=== PATIENT | female | born 1990 | race Caucasian/White ===

== ENCOUNTER 2020-01-17 20:56 | Emergency (ER) | payer OTHER ==
[~2020-01-17] VITALS: Ht 154.9 cm; Wt 63.5 kg
--- NOTE | 2020-01-17 21:00 | NUR ---
Dr. Moran at bedside for MSE.
[2020-01-17] MEDS ORDERED: MORPHINE SULFATE 4 MG/1 ML DISP.SYRIN ONE (21:08)
[2020-01-17] MEDS ORDERED: ONDANSETRON 4 MG/2 ML VIAL ONE (21:08)
[2020-01-17] MEDS ORDERED: MORPHINE SULFATE 4 MG/1 ML DISP.SYRIN IM ONE (21:15)
[2020-01-17] MEDS ORDERED: IV NORMAL SALINE 1000 ML BAG IV ONE (21:15)
[2020-01-17] MEDS ORDERED: ONDANSETRON 4 MG/2 ML VIAL IM ONE (21:15)
[2020-01-17 21:18] LABS: BASOPHILS % (AUTO) 0.3 % (0.0-2.0); EOSINOPHILS % (AUTO) 0.3 % (0.0-7.0); HEMATOCRIT 35.6 % (31.2-41.9); HEMOGLOBIN 11.6 g/dL (10.9-14.3); LYMPHOCYTES # (AUTO) 1.5 K/uL (20.0-40.0); LYMPHOCYTES % (AUTO) 11.8 % (20.5-51.5); MEAN CORPUSCULAR HEMOGLOBIN 22.9 uug (24.7-32.8); MEAN CORPUSCULAR HGB CONC 33 g/dL (32.3-35.6); MEAN CORPUSCULAR VOLUME 70.1 fL (75.5-95.3); MONOCYTES # (AUTO) 0.6 K/uL (2.0-10.0); MONOCYTES % (AUTO) 5.1 % (0.0-11.0); NEUTROPHILS # (AUTO) 10.4 K/uL (1.8-8.9); NEUTROPHILS % (AUTO) 82.5 % (38.5-71.5); PLATELET COUNT (AUTO) 344 K/uL (179-408); RED BLOOD CELL COUNT(AUTO) 5.08 MIL/uL (3.63-4.92); WHITE BLOOD COUNT (AUTO) 12.6 K/uL (3.8-11.8)
[2020-01-17 21:31] LABS: BILIRUBIN,DIRECT 0.1 mg/dL (0.0-0.2); BILIRUBIN,TOTAL 0.3 mg/dL (0.2-1.0); TOTAL PROTEIN, SERUM 8.2 g/dL (6.4-8.2)
[2020-01-17 21:38] LABS: POTASSIUM 3.4 mmol/L (3.5-5.1)
--- NOTE | 2020-01-17 22:01 | NUR ---
Ultrasound at bedside.
[2020-01-17] MEDS ORDERED: IV NORMAL SALINE 250 ML IV ONE (22:08)
[2020-01-17] MEDS ORDERED: SWABABLE VALVE TRANSFER SET EA MC ONE (22:08)
[2020-01-17] MEDS ORDERED: IOHEXOL 300MG/ML 100 ML INFUS..BTL ONE (22:08)
[2020-01-17] MEDS ORDERED: KETOROLAC TROMETHAMINE 30 MG INJ ONE (22:11)
[2020-01-17] MEDS ORDERED: MORPHINE SULFATE 2 MG/1 ML DISP.SYRIN ONE (22:11)
[2020-01-17] MEDS ORDERED: MORPHINE SULFATE 2 MG/1 ML DISP.SYRIN IV ONE (22:15)
[2020-01-17] MEDS ORDERED: KETOROLAC TROMETHAMINE 30 MG INJ IVP ONE (22:15)
[2020-01-17 22:29] LABS: *BILIRUBIN,URIN NEGATIVE (NEGATIVE); *COLOR,URINE YELLOW (YELLOW); *KETONES,URINE 2+ (NEGATIVE); *UROBILINOGEN,URINE 0.2 E.U./dl (NORMAL); LEUKOCYTE ESTERASE ,URINE NEGATIVE (NEGATIVE); NITRITE, URINE NEGATIVE (NEGATIVE); PH,URINE 8.5 (5.0-8.0); UGLUCOSE NEGATIVE (NEGATIVE)
[2020-01-17 22:32] LABS: *BLOOD, URINE TRACE (NEGATIVE); *CLARITY,URINE SLIGHTLY CLOUDY (CLEAR); *URINE HCG, QUAL NEGATIVE (NEGATIVE)
[2020-01-17 22:35] LABS: BACTERIA,URINE FEW /HPF (NONE SEEN); SQUAMOUS EPITHELIAL CELL,UR FEW /HPF (NONE SEEN); WBC,URINE 0-3 /HPF (0-3)
[2020-01-17 22:36] LABS: URINE AMORPHOUS PHOSPHATES MODERATE /HPF
--- NOTE | 2020-01-17 22:36 | NUR ---
Dr. Moran speaking with Dr. Kolby Thompson IMPORTER EXPORTER consult.
--- NOTE | 2020-01-17 22:51 | NUR ---
Dr. Moran performing pelvic exam, chapperoned by Vamsi MAYO.
--- NOTE | 2020-01-17 22:53 | NUR ---
Pt out of ER for CT.
--- NOTE | 2020-01-17 23:15 | NUR ---
Patient back to ER from CT.
--- NOTE | 2020-01-17 23:17 | NUR ---
Dr. Jacquelin Rehman [employer]GE[employer] at bedside.
[2020-01-18 00:07] VITALS: BP 130/95
--- NOTE | 2020-01-18 00:07 | NUR ---
Patient discharged to home in stable condition. Written and verbal after care instructions given. Patient verbalizes understanding of instructions. Stressed follow up or return to ER for worsening s/s. Pt ambulated out of ER with steady gait, no acute signs of distress, VSS, all belongings taken, IV site discontinued.
== END 2020-01-18 00:08 | disposition home or self-care (01) ==
LOC: ER 20:58
DX: N13.2 Hydronephrosis with renal and ureteral calculous obstruction (principal); E87.1 Hypo-osmolality and hyponatremia; N85.4 Malposition of uterus
CPT/HCPCS: 36415; 74177; 76856; 80048; 80076; 81001; 83605; 83690; 84702; 84703; 85025; 96361; 96374; 96375; 96376; 99285; J1885; J2270 ×2; J2405; Q9967; J7030; J7050